=== PATIENT | female | born 1985 | race Caucasian/White ===

== ENCOUNTER 2019-07-30 03:31 | Emergency (ER) | payer SELFPAY ==
[~2019-07-30] VITALS: Ht 154.9 cm; Wt 55.0 kg
[2019-07-30] MEDS ORDERED: OLANZAPINE 10 MG/VIAL IM ONE (04:15)
[2019-07-30 05:47] LABS: HEMATOCRIT. 35.5 % (36.0-48.0); HEMOGLOBIN. 11.8 g/dL (12.0-16.0); MEAN CORPUSCULAR HEMOGLOBIN 29.1 pg (28.0-32.0); MEAN CORPUSCULAR VOLUME 87.6 fL (81.0-99.0); MEAN PLATELET VOLUME 8.6 fl (7.4-10.4); PLATELET 216 x1000/uL (130-400); RED BLOOD CELL COUNT 4.05 mill/uL (4.2-5.4); RED CELL DISTRIBUTION WIDTH 12.9 % (11.6-14.6)
[2019-07-30 05:49] LABS: CHLORIDE 107 mEq/L (98-107)
[2019-07-30 05:53] LABS: ETHANOL BLOOD < 10 mg/dL
[2019-07-30 06:20] LABS: HCG SCREEN NEGATIVE
[2019-07-30 06:42] LABS: PLATELET ESTIMATE NORMAL
[2019-07-30 07:33] LABS: *BARBITURATES SCREEN URINE NEGATIVE (NEGATIVE); *BENZODIAZEPINES SCREEN URINE NEGATIVE (NEGATIVE); *COCAINE SCREEN URINE NEGATIVE (NEGATIVE); METHADONE URINE SCREEN NEGATIVE (NEGATIVE); OPIATES URINE SCREEN NEGATIVE (NEGATIVE)
[2019-07-30 07:34] LABS: CANNABINOID URINE SCREEN NEGATIVE (NEGATIVE); PHENCYCLIDINE URINE SCREEN NEGATIVE (NEGATIVE)
[2019-07-30 07:36] LABS: *AMPHETAMINES SCREEN URINE PRESUMTIVE POSITIVE (NEGATIVE)
[2019-07-30 19:35] VITALS: BP 102/61
== END 2019-07-30 19:35 | disposition home or self-care (01) ==
LOC: ER 03:31
DX: R45.851 Suicidal ideations (principal); Z59.0 Homelessness
CPT/HCPCS: 36415; 80048; 80305; 80307; 80320; 80329; 84703; 85025; 99285; J3490; G0480